=== PATIENT | male | born 1995 | race Caucasian/White ===

== ENCOUNTER 2019-10-23 12:45 | Emergency (ER) | payer OTHER, SELFPAY ==
[2019-10-23 13:03] VITALS: BP 133/68; PULSE 69; RESP 16; TEMP 36.9; O2SAT 99
--- NOTE | 2019-10-23 13:19 | ED.GENADULT ---
HPI - General Adult General Chief complaint: Ear Stated complaint: Ear Pain Time Seen by Provider: 10/23/19 13:19 Source: patient and RN notes reviewed Mode of arrival: ambulatory Limitations: no limitations History of Present Illness HPI narrative: 24-year-old male presents with complaints of intermittent right otalgia, itching, and drainage from for the past 6 months. Ibuprofen with some relief. Symptoms increased over the past month with increase drainage, decrease hearing, and intermittent tinnitus (none at this time). History of ear infections and tympanostomy (last placed 3-4 years ago per Vinicius). Denies swimming or getting water into ear. Denies URI symptoms, No high fevers or chills. Denies injury to the ear. No nasal drainage and congestion. Denies nausea, vomiting, and dizziness. The patient reports he have not been diagnosed with COVID-19. The patient reports he is not waiting for the results of a COVID-19 lab test. The patient reports he do not have fever, chills, weakness, fatigue, myalgia, or facial swelling. The patient reports he do not have a new or worsening cough or shortness of breath. Denies chest pain. The patient reports he do not have any rhinorrhea, congestion, sore throat, nausea, vomiting, abdominal pain, and diarrhea. Tolerating po intake well. Denies recent traveling. Denies concerns for COVID-19 or exposures been home with limited outdoor exposure except for essential household needs, work, and return home. At this time, patient is not suspected of having COVID-19. Some parts of this dictation were generated by voice recognition software and may contain typographical and/or grammatical inaccuracies. Related Data Home Medications Medication Instructions Recorded Confirmed testosterone cypionate 200 mg IM ONCE 10/23/19 10/23/19 Allergies Allergy/AdvReac Type Severity Reaction Status Date / Time No Known Allergies Allergy Verified 10/23/19 13:07 Review of Systems Review of Systems: Narrative: CONSTITUTIONAL: Denies fever, chills, sweats. EYES: Denies visual changes, redness, discharge. ENT: Denies rhinorrhea, congestion, sore throat. Complains of RT otalgia, drainage, itching, intermittent tinnitus. CARDIOVASCULAR: Denies chest pain, palpitations, edema. RESPIRATORY: Denies dyspnea, wheezing, cough. GASTROINTESTINAL: Denies abdominal pain, nausea, vomiting, diarrhea. GENITOURINARY: Denies dysuria, hematuria, abnormal discharge. SKIN: Denies rash or itching. MUSCULOSKELETAL: Denies acute back pain, joint pain, or myalgia. NEUROLOGIC: Denies numbness or focal weakness. PSYCHIATRIC: Denies anxiety or depression. All systems reviewed & are unremarkable except as noted in HPI and below. [facility], [facility] Past Medical History Medical History (Updated 10/26/19 @ 19:51 by COLLETTE Jones) Chronic ear infection Zhngix-xt-[id number] transgender person Tinnitus Ventricular tachycardia, sustained Recurrent Surgical History Surgical History (Updated 10/26/19 @ 19:51 by COLLETTE Jones) History of cardiac radiofrequency ablation History of tympanostomy Family History Family History (Updated 10/26/19 @ 19:54 by COLLETTE Jones) Father Alive and well Mother Alive and well Social History Social History (Updated 10/26/19 @ 19:55 by COLLETTE Jones) Smoking packs per day: 1 Smoking cigarettes per day: 20.0 Years smoked: 5 Smoking pack-years: 5.00 Smoking status: Current every day smoker Tobacco type: cigarettes Second hand tobacco smoke exposure: Yes Alcohol intake: current Substance use: never Living arrangements: with family Occupation/Education: occupation Gender identity (if verbalized by the patient): Transgender Male Comments At time of signature, agree with nurse past medical, surgical, social, and family history. There is relevant patient's past medical history pertinent to the presenting complaint, no relevant family his
== END 2019-10-23 13:38 | disposition home or self-care (01) ==
PROVIDERS: Emergency Provider Nurse Practitioner Family
DX: H60.91 Unspecified otitis externa, right ear (principal); F17.210 Nicotine dependence, cigarettes, uncomplicated; Z87.890 Personal history of sex reassignment
CPT/HCPCS: 99213; G0463

== ENCOUNTER 2020-11-16 14:03 | Emergency (ER) | payer BC, SELFPAY ==
--- NOTE | ~2020-11-16 | XR_ITS ---
XR lumbar spine 2-3V 11/16/2020 14:56 Indication: Low back pain Procedure: 3 views lumbar spine Comparison: No prior studies for comparison. Findings: Vertebral body and disc heights are preserved. No fracture, subluxation or dislocation. The re is mild dextrocurvature of the lumbar spine foramen are symmetric. Impression: 1: No acute abnormality of the lumbar spine. Reviewed, dictated and finalized at location A. Impression: 1: No acute abnormality of the lumbar spine.
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
[2020-11-16 14:15] VITALS: BP 124/67; PULSE 79; RESP 16; TEMP 36.5; O2SAT 100
[2020-11-16 14:16] VITALS: BP 124/67; PULSE 79; RESP 16; TEMP 36.5; O2SAT 100
== END 2020-11-16 15:13 | disposition home or self-care (01) ==
PROVIDERS: Emergency Provider Nurse Practitioner
DX: M54.5 Low back pain (principal); F17.210 Nicotine dependence, cigarettes, uncomplicated
CPT/HCPCS: 72100; 99213; G0463

== ENCOUNTER 2021-01-09 16:10 | Emergency (ER) | payer BC, SELFPAY ==
[2021-01-09 16:18] VITALS: BP 133/55; PULSE 67; RESP 16; TEMP 36.2; O2SAT 100
--- NOTE | 2021-01-09 18:11 | ED.EAR ---
HPI - Ear Problem General Chief complaint: Ear Stated complaint: Ear Pain Time Seen by Provider: 01/09/21 18:12 Source: patient, RN notes reviewed and old records reviewed Mode of arrival: ambulatory Limitations: no limitations History of Present Illness HPI Narrative: 25 year old transgender male presents to [facility] care with complaints of right ear pain with drainage for the past 2 days. Patient states history of ear problems with tubes in bilateral ears. Patient denies any injury to his ears, no fevers, chills or any body aches. Patient has not taken any OTC medications for his complaint. Patient denies any sore throat, cough or any sinus pressure. MD Complaint: ear pain and ear discharge Location: left ear Treatment prior to arrival: none Related Data Home Medications Medication Instructions Recorded Confirmed testosterone cypionate See Rx Instructions .ROUTE .COMPLEX 10/23/19 01/09/21 Allergies Allergy/AdvReac Type Severity Reaction Status Date / Time No Known Allergies Allergy Verified 01/09/21 16:54 Review of Systems Review of Systems: CONSTITUTIONAL: Denies fever, chills, or sweats. EYES: Denies visual changes, redness, or discharge. ENT: clear rhinorrhea,no congestion, sore throat,positive right ear pain and drainage. CARDIOVASCULAR: Denies chest pain, palpitations, or edema. RESPIRATORY: Denies cough or dyspnea. GASTROINTESTINAL: Denies abdominal pain, nausea, vomiting, or diarrhea. GENITOURINARY: Denies dysuria or hematuria. SKIN: Denies rash or itching. MUSCULOSKELETAL: Denies back pain, joint pain, or myalgia. NEUROLOGIC: Denies headache, numbness, or weakness. PSYCHIATRIC: Denies anxiety or depression. All systems reviewed & are unremarkable except as noted in HPI and below PMFSH Past Medical History Medical History (Updated 01/11/21 @ 17:21 by Aleisha Goldberg NP) Chronic ear infection Gptgio-gx-fmgx transgender person Tinnitus Ventricular tachycardia, sustained Recurrent Surgical History Surgical History (Updated 01/11/21 @ 17:16 by Aleisha Goldberg NP) H/O bilateral mastectomy History of cardiac radiofrequency ablation History of tympanostomy Family History Family History Father Alive and well Mother Alive and well Social History Social History Smoking packs per day: 1 Smoking cigarettes per day: 20.0 Years smoked: 5 Smoking pack-years: 5.00 Smoking status: Current every day smoker Tobacco type: cigarettes Second hand tobacco smoke exposure: Yes Alcohol intake: current Substance use: never Gender identity (if verbalized by the patient): Transgender Male Comments At time of signature, agree with nursing past medical, surgical, social and family history. There is no relevant family history pertinent to the presenting complaint Exam Narrative: GENERAL: Well-appearing, well-nourished, and in no acute distress. HEAD: Normocephalic, atraumatic. EYES: PERRLA and EOMI. ENT: Nares patent,clear rhinorrhea no epistaxis. Mucous membranes moist.Right TM red with yellowish drainage present in ear canal ear tube in place, Left TM without redness ear tube in place, throat pink with no lesions or exudates no tonsil enlargement. NECK: Supple.no lymphadenopathy CHEST: Clear to auscultation. No respiratory distress.SAO2 100% on room air. HEART: Regular rate and rhythm. No murmur heard. Normal peripheral pulses. ABDOMEN: Soft, nontender, nondistended, normal active bowel sounds. EXTREMITIES: Normal range of motion. No edema. SKIN: Warm, dry, no rash. NEURO: No focal deficits. Alert and oriented x3. Course Vital Signs Vital signs: Vital Signs Temperature 36.2 C L 01/09/21 16:18 Pulse Rate 67 01/09/21 16:18 Respiratory Rate 16 01/09/21 16:18 Blood Pressure 133/55 L 01/09/21 16:18 Pulse Oximetry 100 01/09/21 16:18 Temperature 36.2 C L
== END 2021-01-09 18:35 | disposition home or self-care (01) ==
PROVIDERS: Emergency Provider Registered Nurse
DX: H66.001 Acute suppurative otitis media without spontaneous rupture of ear drum, right ear (principal); F17.210 Nicotine dependence, cigarettes, uncomplicated; Z90.13 Acquired absence of bilateral breasts and nipples
CPT/HCPCS: 99213; G0463

== ENCOUNTER 2021-04-02 15:37 | Emergency (ER) | payer BC, SELFPAY ==
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
[2021-04-02 15:43] VITALS: BP 135/80; PULSE 92; RESP 16; TEMP 36.9; O2SAT 100
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
[2021-04-02 20:05] VITALS: BP 136/87; PULSE 70; RESP 18; O2SAT 98
== END 2021-04-02 20:06 | disposition home or self-care (01) ==
PROVIDERS: Emergency Provider Emergency Medicine
DX: S00.83XA Contusion of other part of head, initial encounter (principal); S16.1XXA Strain of muscle, fascia and tendon at neck level, initial encounter; S00.81XA Abrasion of other part of head, initial encounter; Z90.13 Acquired absence of bilateral breasts and nipples; V58.5XXA Driver of pick-up truck or van injured in noncollision transport accident in traffic accident, initial encounter
CPT/HCPCS: 70450; 72125; 99284

== ENCOUNTER 2023-03-30 02:36 | Emergency (ER) | payer BC, SELFPAY ==
[2023-03-30] VITALS (19 sets, daily range): BP systolic 107–140; BP diastolic 71–90; PULSE 101–139; RESP 16–25; TEMP 36.5; O2SAT 100
--- NOTE | ~2023-03-30 | XR_ITS ---
EXAMINATION: XR chest 1V portable INDICATION: Heart palpitations TECHNIQUE: Portable AP chest at 0339 hours COMPARISON: 12/06/2014 FINDINGS: The lungs are free of acute opacities. No pleural effusion or pneumothorax. The cardiomedia stinal silhouette is normal. The visualized bones and soft tissues are unremarkable. IMPRESSION: 1. No acute cardiopulmonary abnormality. Reviewed, dictated and finalized at location F. STRY AID TECHNICIAN
--- NOTE | 2023-03-30 02:48 | ECG_ITS ---
Measurements Intervals [place] Rate: 148 P: 36 OK: 123 QRS: 13 QRSD: 121 T: 31 QT: 273 QTc: 428 Interpretive Statements SINUS TACHYCARDIA, POSSIBLE ATRIAL FLUTTER RIGHT BUNDLE BRANCH BLOCK Electronically Signed On 03-30-2023 12:32:44 WING COVERER by Emanuel Victor M.D.
[2023-03-30] MEDS: SODIUM CHLORIDE 0.9% IV 1,000 ML 999 ML IV CONT ×2 (03:06→04:28)
[2023-03-30 03:11] LABS: Basophils Absolute Auto 0.1 K/mm3 (0.0-0.1); Basophils Percent Auto 0.5 % (0.2-1.2); Eosinophils Absolute Auto 0.3 K/mm3 (0-0.3); Hemoglobin 13.7 g/dL (14.0-18.0); Immature Granulocyte Absolute 0.02 K/mm3 (0.00-0.031); Immature Granulocyte Percent A 0.2 % (0-0.5); Lymphocytes Absolute Auto 3.62 K/mm3 (0.9-3.2); Lymphocytes Percent Auto 38.1 % (18.3-44.2); Mean Corpuscular HGB Conc 32.6 g/dl (32-36); Mean Corpuscular Hemoglobin 29.3 pg (26-34); Mean Corpuscular Volume 89.7 fl (80-100); Mean Platelet Volume 9.8 fl (7.4-10.4); Monocytes Absolute Auto 0.8 K/mm3 (0.1-0.6); Monocytes Percent Auto 8.5 % (2.6-8.5); Neutrophils Absolute Auto 4.7 K/mm3 (1.3-6.7); Neutrophils Percent Auto 49.7 % (45.5-73.1); Platelet Count Result 316 k/mm3 (150-375); Red Blood Count 4.68 M/mm3 (4.6-6.20); Red Cell Distribution Width 12.4 % (11.5-14.5); White Blood Count 9.5 K/mm3 (4.5-10.0)
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
[2023-03-30 03:19] LABS: INR 0.9; Prothrombin Time 12.8 Seconds (11.1-14.7)
[2023-03-30 03:20] LABS: Partial Thromboplastin Time 26.4 SECONDS (22.3-36.8)
[2023-03-30 03:54] LABS: Alanine Aminotransferase 67 U/L (6-50); Albumin Level 3.7 g/dL (3.5-5.1); Alkaline Phosphatase 46 U/L (38-126); Anion Gap 6 mmol/L (8-16); Aspartate Amino Transferase 38 U/L (17-59); Bilirubin,Total 0.3 mg/dL (0.2-1.3); Blood Urea Nitrogen 8 mg/dL (9-20); Carbon Dioxide 23 mmol/L (22-30); Chloride 112 mmol/L (98-107); Estimated CRCL calculation 130 ml/min; Estimated Glomerular Filt Rate > 60; Glucose 93 mg/dL (65-110); Magnesium 1.9 mg/dL (1.6-2.3); Potassium 3.9 mmol/L (3.4-5.0); Sodium 141 mmol/L (137-145)
[2023-03-30 04:05] LABS: Troponin I < 0.012 ng/mL (0.000-0.034)
== END 2023-03-30 05:55 | disposition home or self-care (01) ==
PROVIDERS: Emergency Provider Emergency Medicine
DX: R00.2 Palpitations (principal); R00.0 Tachycardia, unspecified; Z90.13 Acquired absence of bilateral breasts and nipples; F17.210 Nicotine dependence, cigarettes, uncomplicated; Z79.890 Hormone replacement therapy
CPT/HCPCS: 36415; 71045; 80053; 83735; 84484; 85025; 85610; 85730; 93005; 96360; 99284; J7030

== ENCOUNTER 2023-09-10 09:17 | Emergency (ER) | payer BC, SELFPAY ==
[2023-09-10 09:24] VITALS: BP 126/71; PULSE 73; RESP 16; TEMP 36.7; O2SAT 99
--- NOTE | 2023-09-10 09:33 | ED.GENADULT ---
HPI - General Adult General Chief complaint: Ear Stated complaint: Insect Bite Right Forearm Source: patient, RN notes reviewed and old records reviewed Mode of arrival: ambulatory Limitations: no limitations History of Present Illness HPI narrative: Patient presents to [facility] today with multiple complaints. He 1st reports that he has what he thinks is an insect bite to the right forearm, he also has a rash that he thinks is poison diamante to both arms. And some right ear pain. He reports that all symptoms have been present for about 2 days. He denies any fever, chills, sweats. He does complain of some itching. Denies other injury and trauma. Voices no other concerns or complaints today. Related Data Home Medications Medication Instructions Recorded Confirmed testosterone cypionate 200 mg/mL See Rx Instructions .Route .COMPLEX 10/23/19 09/10/23 intramuscular oil Allergies Allergy/AdvReac Type Severity Reaction Status Date / Time No Known Allergies Allergy Verified 09/10/23 09:18 Review of Systems Review of Systems: All systems reviewed & are unremarkable except as noted in HPI and below Constitutional: Constitutional: Reports no additional constitutional complaints ENT: Reports system reviewed and no additional complaints, except as documented and Reports otalgia Cardiovascular: Cardiovascular: Reports no additional cardiovascular complaints Respiratory: Respiratory: Reports no additional respiratory complaints Gastrointestinal: Gastrointestinal: Reports no additional gastrointestinal complaints Integumentary/Breasts: Skin/Breast: Reports rash and Reports sores PMFSH Past Medical History Medical History Chronic ear infection Xesuyn-ld-qsci transgender person Tinnitus Ventricular tachycardia, sustained Recurrent Surgical History Surgical History H/O bilateral mastectomy History of cardiac radiofrequency ablation History of tympanostomy Family History Family History Father Alive and well Mother Alive and well Social History Social History Smoking packs per day: 1 Smoking cigarettes per day: 20.0 Years smoked: 5 Smoking pack-years: 5.00 Smoking status: Current every day smoker Tobacco type: cigarettes Second hand tobacco smoke exposure: Yes Alcohol intake: current Substance use: never Living arrangements: with family Occupation/Education: occupation Gender identity (if verbalized by the patient): Transgender Male Comments At the time of my signature, I reviewed and agree with the nursing past medical, surgical, social, and family history. There is no relevant family history pertinent to the patient complaint. Exam Const: General: cooperative, no acute distress, alert and awake Orientation/consciousness: oriented to person, oriented to place and oriented to time HENMT: Head: normal to inspection Ears: other (Right TM with tube present, the drum surrounding the tube is erythematous) Throat: posterior oropharynx normal Neck: Lymphatic: no lymphadenopathy noted Resp: Effort & Inspection: normal respiratory effort and able to speak in complete sentences Auscultation: clear to auscultation bilaterally, no crackles, no rales, no rhonchi and no wheezes Cardio: Palpation: normal PMI Rate: regular rate Rhythm: regular rhythm Heart sounds: S1 normal heart sound present and S2 normal heart sound present Skin: Other: There are scant areas of dermatitis that is consistent with poison diamante to bilateral forearms, extending about prison up the forearm. No sign of secondary infection. On the right arm there is a 0.4 cm circular raised red area with a black central opening. No excessive heat, no surrounding induration. No active drainage. N
== END 2023-09-10 09:40 | disposition home or self-care (01) ==
PROVIDERS: Emergency Provider Nurse Practitioner Family
DX: L23.7 Allergic contact dermatitis due to plants, except food (principal); H66.001 Acute suppurative otitis media without spontaneous rupture of ear drum, right ear; F17.210 Nicotine dependence, cigarettes, uncomplicated
CPT/HCPCS: 99213; G0463

== ENCOUNTER 2024-03-24 16:45 | Emergency (ER) | payer BC, SELFPAY ==
[2024-03-24 16:52] VITALS: BP 117/65; PULSE 76; RESP 20; TEMP 36.9; O2SAT 99
--- NOTE | 2024-03-24 17:03 | ED_ITS ---
HPI - Ear Problem General Chief complaint: Ear Stated complaint: Ear Irritation Time Seen by Provider: 03/24/24 16:55 Source: patient Mode of arrival: ambulatory Limitations: no limitations History of Present Illness HPI Narrative: Vinicius is a 29-year-old male patient presenting to the clinic today with complaints of right ear pain x1 month. Reports he is having drainage coming for the right ear. History of ear tube in the right ear. Denies any fevers, chills, body aches. The drainage is whitish yellow. Related Data Home Medications ?Medication ?Instructions ?Recorded ?Confirmed ?Last Taken ?Type testosterone cypionate 200 mg/mL See Rx Instructions .Route .COMPLEX 10/23/19 09/10/23 Unknown History intramuscular oil Allergies Allergy/AdvReac Type Severity Reaction Status Date / Time No Known Allergies Allergy Verified 03/24/24 16:56 Review of Systems Review of Systems: Pertinent positives per HPI. Patient denies any fever, chills, rash, headache, visual changes, dizziness, cough, runny nose, sore throat, shortness of breath, chest pain, palpitations, nausea, vomiting, diarrhea, constipation, abdominal pain, or any urinary issues. [facility] Past Medical History Medical History [id number] transgender person Ventricular tachycardia, sustained Recurrent Tinnitus Chronic ear infection Surgical History Surgical History H/O bilateral mastectomy History of cardiac radiofrequency ablation History of tympanostomy Family History Family History Father Alive and well Mother Alive and well Social History Social History Smoking packs per day: 1 Smoking cigarettes per day: 20.0 Years smoked: 5 Smoking pack-years: 5.00 Smoking status: Current every day smoker Tobacco type: cigarettes Second hand tobacco smoke exposure: Yes Alcohol intake: current Substance use: never Living arrangements: with family Occupation/Education: occupation Gender identity (if verbalized by the patient): Transgender Male Comments At the time of my signature, I reviewed and agree with the nursing past medical, surgical, social, and family history. There is no relevant family history pertinent to the patient complaint. Exam Narrative: General: Well-developed, well nourished, in no apparent distress Head: Normocephalic, atraumatic Eyes: Pupils equally round and reactive to light bilaterally, EOM intact, sclera and conjunctive clear, no discharge, lids normal Ears: Left TMs intact and clear, right TM intact, bulging, red with yellow white mucopurulent discharge coming from the ear tube in the canal, left ear canal clear, grossly hearing normal. Nose: Nares patent, no discharge, no inflammation, no sinus tenderness. Mouth: Oropharynx without lesions or masses, good dentition, MMM. Neck: Supple, trachea midline, no enlargement of anterior or posterior cervical nodes, no thyroid masses or goiter palpable. Cardio: Regular rate and rhythm, s1 and s2 normal, no murmur appreciated. Resp: Clear to auscultation bilaterally anteriorly and posteriorly, no rhonchi, rales, wheezing or rubs Course Course Emergency Course: Portions of this record may have been created with voice recognition software. Level of Care: Express Care Visit Vital Signs Vital signs: Vital Signs Temperature 36.9 C 03/24/24 16:52 Pulse Rate 76 03/24/24 16:52 Respiratory Rate 20 03/24/24 16:52 Blood Pressure 117/65 03/24/24 16:52 Pulse Oximetry 99 03/24/24 16:52 Oxygen Delivery Room Air 03/24/24 16:52 Temperature 36.9 C 03/24/24 16:52 Pulse Rate 76 03/24/24 16:52 Respiratory Rate 20 03/24/24 16:52 Blood Pressure 117/65 03/24/24 16:52 Pulse Oximetry 99 03/24/24 16:52 Oxygen Delivery Room Air 03/24/24 16:52 Vital signs reviewed Medical Decision Making MDM Narrative Medical decision making narrative: At the time of visit patient is resting comfortably on the exam table. Patient appears to be nontoxic. Plan: I suspect patient has right otitis media. Prescription for ofloxacin ear drops as well as a Augmentin was sent to pharmacy. Supportive measures were discussed with the patient and they voiced understanding discharge instructions and agrees to treatment plan. Return precautions reviewed Differential Diagnosis Differential Diagnosis: Otitis media, otitis externa, eustachian tube dysfunction, cerumen impaction, upper respiratory infection, serous otitis Vital Signs Vital Signs: Vital Signs Temperature 36.9 C 03/24/24 16:52 Pulse Rate 76 03/24/24 16:52 Respiratory Rate 20 03/24/24 16:52 Blood Pressure 117/65 03/24/24 16:52 Pulse Oximetry 99 03/24/24 16:52 Oxygen Delivery Room Air 03/24/24 16:52 Temperature 36.9 C 03/24/24 16:52 Pulse Rate 76 03/24/24 16:52 Respiratory Rate 20 03/24/24 16:52 Blood Pressure 117/65 03/24/24 16:52 Pulse Oximetry 99 03/24/24 16:52 Oxygen Delivery Room Air 03/24/24 16:52 Discharge Plan Discharge Clinical Impression: Otitis media Qualifiers: Otitis media type: suppurative Chronicity: acute Laterality: right Recurrence: not specified as recurrent Spontaneous tympanic membrane rupture: without spontaneous rupture Qualified Code(s): H66.001 - Acute suppurative otitis media without spontaneous rupture of ear drum, right ear Patient Disposition: Home, Self-Care Condition: Stable Instructions: Antibiotic Form, Ear Infection (ED) Additional Instructions: Take any prescribed medications only as directed-ofloxacin and Augmentin. Tylenol/motrin as needed for pain May use heating pad to alleviate pain If you get recurrent ear infections it may be warranted to follow up with ENT. Follow up with your PCP in 3-5 days if symptoms persist. Patient Language: Upper Sorbian Prescriptions: New amoxicillin-pot clavulanate 875-125 mg tablet 1 tablet PO Q12H 10 Days Qty: 20 0RF ofloxacin 0.3 % drops 5 drp otic (ear) BID 7 Days Qty: 5 0RF No Action testosterone cypionate 200 mg/mL Oil See Rx Instructions .ROUTE .COMPLEX Rx Instructions: 200 mg intramuscularly EVERY 2 WEEKS Follow-up/Referrals: PHYSICIAN,LOAN REVIEW OFFICER [Primary Care Provider] - Time of Disposition: 17:01 Quality NIHSS Nursing Documentation ED NIHSS nursing documentation: reviewed/agree
== END 2024-03-24 17:10 | disposition home or self-care (01) ==
PROVIDERS: Emergency Provider Nurse Practitioner Family
DX: H66.001 Acute suppurative otitis media without spontaneous rupture of ear drum, right ear (principal); F17.210 Nicotine dependence, cigarettes, uncomplicated; Z90.13 Acquired absence of bilateral breasts and nipples; F64.0 Transsexualism
CPT/HCPCS: 99213; G0463

== ENCOUNTER 2024-09-21 10:03 | Emergency (ER) | payer BC, SELFPAY ==
[2024-09-21 10:11] VITALS: BP 119/76; PULSE 79; RESP 18; TEMP 36.8; O2SAT 98
--- NOTE | 2024-09-21 10:57 | ED_ITS ---
HPI - Skin/Abscess/Foreign Bdy General Chief complaint: Skin/Abscess/Foreign Body Stated complaint: Rash Time Seen by Provider: 09/21/24 10:15 Source: patient and RN notes reviewed Mode of arrival: ambulatory Limitations: no limitations History of Present Illness HPI narrative: 29-year-old male presents to the [facility] complaining of poison maty rash for proximally 3-4 days. Patient said he was mowing the grass when he got himself into poison maty. Patient says he is allergic to poison maty. Patient has developed a pruritic, vesicular papular rash scattered throughout the patient's arms, trunk, legs, and face. Patient denies any tongue, lips, throat swelling. Patient denies any respiratory distress, wheezing, or any shortness of breath. Patient has been using lzyl-[id number] poison maty rubs and using rubbing alcohol help with symptoms. Related Data Home Medications ?Medication ?Instructions ?Recorded ?Confirmed ?Last Taken ?Type testosterone cypionate 200 mg/mL See Rx Instructions .Route .COMPLEX 10/23/19 09/10/23 Unknown History intramuscular oil Allergies Allergy/AdvReac Type Severity Reaction Status Date / Time No Known Allergies Allergy Verified 09/21/24 10:14 Review of Systems Review of Systems: CONSTITUTIONAL: Denies fever, chills, or sweats. EYES: Denies visual changes, redness, or discharge. ENT: Denies rhinorrhea, congestion, sore throat, difficulty clearing secretions, swelling, or otalgia. CARDIOVASCULAR: Denies chest pain, palpitations, or edema. RESPIRATORY: Denies cough, wheezing, or dyspnea. GASTROINTESTINAL: Denies abdominal pain, nausea, vomiting, or diarrhea. GENITOURINARY: Denies dysuria or hematuria. SKIN: Positive for rash and itching. MUSCULOSKELETAL: Denies back pain, joint pain, or myalgia. NEUROLOGIC: Denies headache, numbness, or weakness. PSYCHIATRIC: Denies anxiety or depression. All other systems reviewed are negative, except as documented in HPI. [facility] Past Medical History Medical History Joftyw-kc-uzzm transgender person Ventricular tachycardia, sustained Recurrent Tinnitus Chronic ear infection Surgical History Surgical History H/O bilateral mastectomy History of cardiac radiofrequency ablation History of tympanostomy Family History Family History Father Alive and well Mother Alive and well Social History Social History Smoking packs per day: 1 Smoking cigarettes per day: 20.0 Years smoked: 5 Smoking pack-years: 5.00 Smoking status: Current every day smoker Tobacco type: cigarettes Second hand tobacco smoke exposure: Yes Alcohol intake: current Substance use: never Living arrangements: with family Occupation/Education: occupation Gender identity (if verbalized by the patient): Transgender Male Comments At the time of my signature, I reviewed and agree with the nursing past medical, surgical, social, and family history. There is no relevant family history pertinent to the patient complaint. Exam Narrative: GENERAL: This is a well-nourished, well-developed adult, in no apparent distress. They are non ill-appearing, nontoxic appearing. HEAD: normocephalic, atraumatic. EYES: Sclera clear/white. Conjunctiva normal. Vision is grossly intact. Extraocular movements intact. Pupils PERRLA. Bilateral upper eyelid and lower eyelids are mildly edematous. EARS: External ears normal, Hearing grossly intact. NOSE: External nose normal THROAT: Mucous membranes moist, posterior pharynx clear, without erythema or swelling. Uvula midline. NECK: Neck supple, non-tender without lymphadenopathy, masses or thyromegaly. CARDIOVASCULAR: Regular rate and rhythm RESPIRATORY: Respiratory rate normal, respiratory effort nonlabored, no respiratory distress GASTROINTESTINAL: Abdomen soft, non-tender, nondistended. Bowel sounds are active. No hepato-splenomegaly, or palpable masses. No guarding. SKIN: There is a erythematous pruritic papular, vesicular rash scattered diffusely on patient's trunk, bilateral arms, bilateral hands, scantly on face, and legs. No area of fluctuance, no induration. No exudate. NEURO: awake, alert, and oriented to person, place and time. There were no obvious focal neurologic abnormalities. EXTREMITIES: No joint tenderness, effusion, or edema noted. Course Course Emergency Course: Portions of this record may have been created with voice recognition software Level of Care: Express Care Visit Vital Signs Vital signs: Vital Signs Temperature 98.2 F 09/21/24 10:11 Pulse Rate 79 09/21/24 10:11 Respiratory Rate 18 09/21/24 10:11 Blood Pressure 119/76 09/21/24 10:11 Pulse Oximetry 98 09/21/24 10:11 Oxygen Delivery Room Air 09/21/24 10:11 Temperature 98.2 F 09/21/24 10:11 Pulse Rate 79 09/21/24 10:11 Respiratory Rate 18 09/21/24 10:11 Blood Pressure 119/76 09/21/24 10:11 Pulse Oximetry 98 09/21/24 10:11 Oxygen Delivery Room Air 09/21/24 10:11 Reviewed MDM - Skin/Abscess/Foreign Bdy MDM Narrative Medical decision making narrative: Appears patient has allergic to dermatitis to poison maty. Patient given a shot of methylprednisolone. Will have patient started prednisone taper tomorrow. Discussed physical exam findings. Advised supportive measures and signs/symptoms to go to the ER. Pt is appropriate for outpt treatment and f/u. Differential Diagnosis Differential diagnosis: Likely urticaria, cellulitis, eczema, contact dermatitis and other (Poison maty dermatitis, allergic dermatitis) Critical Care Time Critical Care Time Critical Care Time: No Discharge Plan Discharge Clinical Impression: Poison maty dermatitis Patient Disposition: Home Condition: Stable Instructions: Poison Maty (ED) Additional Instructions: Start the prednisone tomorrow as directed. Take it in the morning and take it with food. You may use [id number] Tecnu soap as directed on the bottle to help remove the oils from poison maty off your skin. You may use calamine lotion, camphor, hydrocortisone cream ,Benadryl cream as needed for itchiness symptoms. You may also take Zyrtec or Claritin as needed for allergy or itchiness symptoms. Follow-up PCP in 3-5 days. If you develop any worsening redness, swelling, discharge, fevers, breathing problems, or any other concerns please go to the ER immediately. Patient Language: Hebrew Prescriptions: New prednisone 10 mg tablet See Taper PO DIRECTED Qty: 42 0RF Taper: Prednisone Taper from 60 mg;12 days 60 mg DAILY for 2 Days and 0 Hour 50 mg DAILY for 2 Days and 0 Hour 40 mg DAILY for 2 Days and 0 Hour 30 mg DAILY for 2 Days and 0 Hour 20 mg DAILY for 2 Days and 0 Hour 10 mg DAILY for 2 Days and 0 Hour No Action testosterone cypionate 200 mg/mL Oil See Rx Instructions .ROUTE .COMPLEX Rx Instructions: 200 mg intramuscularly EVERY 2 WEEKS Follow-up/Referrals: PHYSICIAN,ASSISTANT BRANCH OPERATIONS MANAGER [Primary Care Provider] - Time of Disposition: 10:32
== END 2024-09-21 11:12 | disposition home or self-care (01) ==
DX: L23.7 Allergic contact dermatitis due to plants, except food (principal); F17.210 Nicotine dependence, cigarettes, uncomplicated; F64.0 Transsexualism; Z90.13 Acquired absence of bilateral breasts and nipples
CPT/HCPCS: 96372; 99213; G0463; J2919